=== PATIENT | female | born 1980 | race African-American/Black ===

== ENCOUNTER 2018-01-02 10:26 | Inpatient (IN) | payer OTHER ==
--- NOTE | 2017-11-16 11:52 | HP ---
HISTORY OF PRESENT ILLNESS: Ms. Loomis is a 37-year-old white female G4, P4 with 3 vaginal deliverie s and 1 with her last delivery with tubal ligation. She was referred for stress urinary in continence symptoms where she is reporting needing to wear a pad daily for urine loss associated with laughing, sneezing and coughing. She denies any urgency or frequency issues. She also reports a ne ed to use vaginal splinting at times for passage of stools and noted a bulge in her vagina associated with prolapse. She has had a recent normal Pap smear in the past year. She has no menstrual issues . PAST MEDICAL HISTORY: Otherwise, negative. PAST SURGICAL HISTORY: Noted section with tubal ligation. FAMILY HISTORY: Hypertension in her parents. SOCIAL HISTORY: Nonsmoker. No excessive alcohol use. CURRENT MEDICATIONS: She takes duloxetine 60 mg tablet daily for generalized anxiety and depression. She also takes risperidone 0.5 mg tablet daily for anxiety and nabumetone 500 mg twice a day. ALLERGIES: She has no known drug allergies. PHYSICAL EXAMINATION: VITAL SIGNS: Her height is 5 feet 9 inches, weight 211 pounds, BMI 31.2, blood pressure 122/78, puls e 75 and respirations 18. HEENT: Within normal limits. CHEST: Clear to auscultation. HEART: Regular rate and rhythm. S1, S2 heart sounds, no murmurs, rubs or gallops. ABDOMEN: Soft, nontender, nondistended with no palpable masses. Well-healed scar. PELVIC: Vulva and vagina had no lesions. Bladder urethra, there is no urethral discharge or mass. Normal meatus and bladder was nondistended. She had a hypermobile urethra with angle greater than 45 degrees with Valsalva and also loss of urine with Valsalva. She has no vaginal tenderness, no lesio ns seen. She has a grade 2-3 rectocele with Valsalva. Minimal cystocele noted. There is mainly hyp ermobility of the bladder neck appreciated. Cervix had no lesions. Uterus is small and nontender. Adnexa were nontender with no masses. ASSESSMENT: A 37-year-old white female G4, P4 with female stress urinary incontinence and also sympt omatic grade 2-3 rectocele. PLAN: Proceed with posterior repair and also Advantage Fit TVT sling with cystoscopy. Surgery sched uled for 11/21/2017. Risks and benefits of surgery are discussed in details.
--- NOTE | 2017-12-28 21:38 | HP ---
HISTORY OF PRESENT ILLNESS: Ms. Loomis is a 37-year-old -[place] female who is having G1 str ess incontinence symptoms. She also was noticing a bulge in her vagina which causes her issues with emptying of her stool. She is requiring at times for passage of stool. She also reports loss of urine with cough, sneeze, and other Valsalva maneuvers and wears a pad daily for this. She has no urgency issues. PAST MEDICAL HISTORY: Otherwise, negative. ALLERGIES: She has no known drug allergies. OB HISTORY: She has had 4 spontaneous vaginal deliveries. LABORATORY DATA: Pap smear was normal in 02/2016. CURRENT MEDICATIONS: Duloxetine 60 mg daily for anxiety and bipolar disorder, Risperdal 2 mg tablet daily. PHYSICAL EXAMINATION: VITAL SIGNS: Her weight is 211 pounds, 5 feet and 9 inches, blood pressure 122/78, BMI 31.2, respira tory rate was 18. HEENT: Within normal limits. CHEST: Clear to auscultation. HEART: Regular rate rhythm. S1, S2 heart sounds, no murmurs, rubs or gallops. ABDOMEN: Soft, nontender, nondistended. No palpable masses. PELVIC: Vulva and vagina had no lesions. She has a hypermobile urethra with angle of 45 degrees wit h Valsalva. Loss of urine with Valsalva noted. She has a grade 2-3 rectocele, minimal cystocele, bu t mainly bladder neck mobility. There were no cervical lesions. Uterus is small, nontender with no excessive prolapse. Adnexa are nontender with no masses. ASSESSMENT: This is a 37-year-old -[place] female G4, P4 with along with symptomatic g rade 2-3 rectocele. PLAN: Proceed with a posterior repair with an advantage TVT with cystoscopy procedure. This is set for 01/02/2018. Risks and benefits of the procedure have been discussed in detail.
[2018-01-01 16:36] VITALS: BMI 33.2
[2018-01-02] MEDS ORDERED: CEFAZOLIN 2 GM/50 ML BAG ONE ×2 (10:57→11:06)
[2018-01-02 11:21] LABS: #Basophils 0.1 thou/uL (0.0-0.2); #Eosinphils 0.1 thou/uL (0.0-0.7); #Lymphocytes 1.8 thou/uL (1.20-3.40); #Monocytes 0.5 thou/uL (0.11-0.59); #Neutrophils 3.8 thou/uL (1.40-6.50); %Basophils 1.4 % (0.0-1.0); %Eosinophils 1.9 % (0.0-10.0); %Lymphocytes 28.8 % (21.0-51.0); %Monocytes 8.5 % (0.0-10.0); %Neutrophils 59.4 % (42.0-75.0); Hemoglobin 11.3 g/dL (12.0-16.0); Mean Corpuscular HGB CONC 30.3 g/dL (32.0-36.0); Mean Corpuscular Hemoglobin 23.3 pg (27.0-31.0); Mean Platelet Volume 7.7 fL (7.4-10.4); Platelet Count 433 thou/uL (130-400); RBC Distribution Width 14.6 % (11.5-14.5); Red Blood Cell (RBC) Count 4.84 mill/uL (4.20-5.40); White Blood Cell (WBC) Count 6.3 thou/uL (4.8-10.8)
[2018-01-02] MEDS ORDERED: Fentanyl 100 MCG/2 ML VIAL ONE ×2 (12:29→15:59)
[2018-01-02] MEDS ORDERED: Lidocaine 1% w/Epinephrine 1:100K 30 ML VIAL ONE (13:53)
[2018-01-02] MEDS ORDERED: Sodium Chloride 0.9% 30 ML ONE (14:23)
[2018-01-02] MEDS ORDERED: PHENYLEPHRINE-NS 100 MCG/ML 10 ML SYRINGE ONE (15:03)
[2018-01-02] MEDS ORDERED: Lidocaine 1% PF 5 ML VIAL ONE (15:03)
[2018-01-02] MEDS ORDERED: Ketorolac Tromethamine 30 MG/ML VIAL ONE (15:03)
[2018-01-02] MEDS ORDERED: PROPOFOL 200 MG/20 ML VIAL ONE (15:03)
[2018-01-02] MEDS ORDERED: Zolpidem Tartrate 5 MG TAB PO PRN (15:41)
[2018-01-02] MEDS ORDERED: traMADol HCl 50 MG TAB PO PRN (15:41)
[2018-01-02] MEDS ORDERED: Simethicone Chewable 80 MG TAB PO PRN (15:41)
[2018-01-02] MEDS ORDERED: diphenhydrAMINE 25 MG CAP PO PRN (15:41)
[2018-01-02] MEDS ORDERED: Bisacodyl 10 MG SUPP PR PRN (15:41)
[2018-01-02] MEDS ORDERED: Morphine 2 MG/ML SYRINGE SLOW IVP PRN (15:41)
[2018-01-02] MEDS ORDERED: Promethazine HCl 25 MG/ML VIAL IM PRN ×2 (15:41→15:52)
[2018-01-02] MEDS ORDERED: Ondansetron PF 4 MG/2 ML Vial IVP PRN (15:41)
[2018-01-02] MEDS ORDERED: Meperidine HCl/PF 25 MG/ML VIAL ONE (15:48)
[2018-01-02] MEDS ORDERED: Meperidine HCl/PF 25 MG/ML VIAL SLOW IVP PRN (15:52)
[2018-01-02] MEDS ORDERED: Promethazine HCl 25 MG/ML VIAL SLOW IVP PRN (15:52)
[2018-01-02] MEDS ORDERED: Ondansetron HCl/PF 4 MG/2 ML Vial IVP PRN (15:52)
[2018-01-02] MEDS ORDERED: Ketorolac Tromethamine 30 MG/ML VIAL IVP SCH (18:00)
[2018-01-02] MEDS: traMADol HCl 50 MG TAB PO PRN (18:32)
[2018-01-02] MEDS: Ketorolac Tromethamine 30 MG/ML VIAL IVP SCH (22:00)
[2018-01-02] MEDS: Docusate Calcium (SURFAK) 240 MG CAP PO SCH (22:01)
[2018-01-02] MEDS: Lactated Ringer's 1,000 ML IV SCH (22:03)
[2018-01-03] MEDS: Ketorolac Tromethamine 30 MG/ML VIAL IVP SCH ×2 (03:34→09:13)
--- NOTE | 2018-01-03 03:35 | OP ---
DATE OF PROCEDURE: 01/02/2018 PREOPERATIVE DIAGNOSES: 1. A 37-year-old female with symptomatic grade 3 rectocele. 2. Genuine stress incontinence. POSTOPERATIVE DIAGNOSES: 1. A 37-year-old female with symptomatic grade 3 rectocele. 2. Genuine stress incontinence. PROCEDURES PERFORMED: 1. Advantage-Fit TVT with cystoscopy. 2. Posterior repair. SURGEON: Candie Barnett M.D. [employer]SEM[employer]ER [employer] SURGEON: Myla Abad M.D. ANESTHESIA: General endotracheal. ESTIMATED BLOOD LOSS: 100 mL. COMPLICATIONS: None. COUNTS: Correct x2. ANTIBIOTICS: Two grams Ancef on-call to the OR. FINDINGS: 1. Cystoscopy of the bladder, post-TVT placement showed no evidence of mesh placement. Bladder muco sa was normal and bilateral ureteral efflux was visualized. Urethra also appeared normal. 2. Clear urine present in Garland catheter post-procedure. 3. No evidence of rectal mucosal sutures placed post repair check. DISPOSITION: To the recovery room stable. DESCRIPTION OF OPERATIVE PROCEDURE: The patient previously received informed consent in regard to early [facility]. She was taken back to the operating room where she received a general endotracheal anesthetic agent without complications. She was placed in the dorsal lithotomy position with Rohan stirrups. She was prepped and draped in usual sterile fashion. Garland catheter was placed and the position of t he urethral meatus was identified. Just above the symphysis pubis area 2 cm lateral to the urethral meatus was marked in the lower suprapubic area with a marking pen bilaterally. Then, the retropubic space was infiltrated with injectable saline. Approximately 40 mL water dissection in the retropubic space. Next, the Garland bulb was palpated and mid urethra was identified. Allis clamp was placed early periorly and inferiorly to this. The vaginal mucosa in this area was infiltrated with 1% lidocaine w ith epinephrine. A 1.5 cm vertical midline incision was made in the vaginal mucosa in the midpoint o f the mid urethra. The edges of this was grasped with two Allis clamps and then Metzenbaum scissors was utilized to dissect submucosally towards the junction of the internal pubic ramus and the symphys is pubis bilaterally. The space of Retzius was punctured. Once this was obtained, the Garland cathete r was placed and Garland guidewire was then placed deviating the bladder away from the patient's right side while the Advantage-Fit trocar was assembled and the TVT tape was placed through the previously dissected tunnel behind the symphysis pubis up to the marked space. The end of the trocar was then p ulled back tagged with a Payton clamp. This was again repeated on the patient's left side after placed in proper position aiming toward axilla in the previous marked spot, again tagging the end of the mesh tape. The Advantage-Fit trocar had been removed. We had also diverted the bladder t o the patient's opposite side during the same placement of the trocar. The Garland catheter was then r emoved. The cystoscopy was performed with 70-degree scope. Bladder was distended with the previousl y mentioned findings. Once we ascertained that there was no injury to the bladder, a Reaves scissor wa s then placed in the mid urethra spot and two ends of the mesh were then pulled through and were pull ed snugly against the Reaves scissor, then the mesh was trimmed at the base of skin edges bilaterally. The Reaves scissors had been removed. The submucosal vaginal mucosa of the mid urethra site was then closed with interrupted [id number] sutures of Vicryl securing hemostasis. Garland catheter was re placed and clear urine was draining from the catheter. Attention was then turned to the posterior repair. Two Allis clamps were placed at the 4 and 8 o'kai ck position. The posterior vaginal mucosa was infiltrated with 1% lidocaine with epinephrine. A mid line vertical incision up to the cervix was incised and the edges of the vaginal mucosa were grasped with Allis clamps. Then, the endopelvic fascia was dissected sharply and bluntly dissecting rectocel e in its entirety. An extra glove was placed over the right hand and the rectum was inspected and th e edges of the endopelvic fascial defects were grasped with Allis clamps. The dirty glove was then r emoved and then we plicated the endopelvic fascia with [id number] sutures of 0 Vicryl closing th e endopelvic fascial defect and reducing the rectocele starting proximally and working distally towar ds the introitus. Once this had been completed, an additional rectal exam was carried out and again no evidence of any sutures in the rectum were noted and reduction of the rectocele was confirmed. Th e vaginal mucosa and posterior vagina was then closed with interrupted [id number] sutures starti ng in the most proximal working towards the introitus securing hemostasis. A moistened Kerlix was th en placed in the vaginal vault for hemostasis and pressure. The patient was awakened from anesthesia and transferred to the recovery room in stable condition.
[2018-01-03] MEDS: Lactated Ringer's 1,000 ML IV SCH (05:25)
[2018-01-03 06:31] LABS: Hemoglobin 10.7 g/dL (12.0-16.0); Mean Corpuscular HGB CONC 30.2 g/dL (32.0-36.0); Mean Corpuscular Hemoglobin 23.6 pg (27.0-31.0); Mean Platelet Volume 7.9 fL (7.4-10.4); Platelet Count 445 thou/uL (130-400); RBC Distribution Width 14.6 % (11.5-14.5); Red Blood Cell (RBC) Count 4.55 mill/uL (4.20-5.40); White Blood Cell (WBC) Count 22.9 thou/uL (4.8-10.8)
[2018-01-03] MEDS: traMADol HCl 50 MG TAB PO PRN (07:55)
[2018-01-03] MEDS: Docusate Calcium (SURFAK) 240 MG CAP PO SCH (07:55)
[2018-01-03 12:08] VITALS: BP 117/72; TEMP 97.9
--- NOTE | 2018-01-03 15:52 | DIS ---
DATE OF ADMISSION: 01/02/2018 DATE OF DISCHARGE: 01/03/2018 DIAGNOSES: 1. Female genuine stress incontinence. 2. Symptomatic grade 3 rectocele. PROCEDURES PERFORMED: 1. Advantage Fit TVT with cystoscopy. 2. Posterior repair. SUMMARY OF HOSPITAL COURSE: Ms. Loomis is a 37-year-old -[place] female who had symptomatic genuine stress incontinence and grade 3 rectocele who underwent surgical correction of this on 2017. Postoperatively, the patient has done well. Her vital signs remained stable. Her postoperati ve hematocrit was 35%. She began voiding trials the morning of postop day #1 with initial voids in t he 400 with postvoid residuals noted on bladder scan of 0. She was ambulating and tolerating a regul ar diet at the time of discharge. She was discharged home on the afternoon of postop day #1 with dis charge meds tramadol 50 mg q.6 hours p.r.n. pain, [id number] ibuprofen as directed and Zofran 4 mg p.o. q.6 hours p.r.n. nausea. She has a scheduled followup 2 and 6 weeks postop.
[2018-01-07] MEDS ORDERED: Ibuprofen 800 MG TAB PO SCH (21:00)
== END 2018-01-03 14:17 | disposition home or self-care (01) | DRG 748 ==
LOC: SDC 10:26 → 3SE 16:37 → OBSVTOIN 16:37
PROVIDERS: ADMIT Obstetrics & Gynecology; ATTEND Obstetrics & Gynecology
PROC: 0TSD0ZZ Reposition Urethra, Open Approach (ICD-10-PCS; principal; 2018-01-02)
PROC: 0JQC0ZZ Repair Pelvic Region Subcutaneous Tissue and Fascia, Open Approach (ICD-10-PCS; 2018-01-02)
PROC: 0TJB8ZZ Inspection of Bladder, Via Natural or Artificial Opening Endoscopic (ICD-10-PCS; 2018-01-02)
DX: N81.6 Rectocele (principal); N39.3 Stress incontinence (female) (male); N36.41 Hypermobility of urethra; F41.1 Generalized anxiety disorder; F31.9 Bipolar disorder, unspecified; Z79.899 Other long term (current) drug therapy
CPT/HCPCS: 36415; 85025; 85027; 86850; 86900; 86901; C1781; J1885; J2001; J2175; J2405; J2704; J3010

== ENCOUNTER 2018-01-03 22:08 | Emergency (ER) | payer OTHER ==
[2018-01-04 00:48] LABS: #Eosinphils 0.1 thou/uL (0.0-0.7); #Lymphocytes 2.4 thou/uL (1.20-3.40); %Basophils 0.1 % (0.0-1.0); %Eosinophils 0.5 % (0.0-10.0); %Lymphocytes 18.8 % (21.0-51.0); %Monocytes 8.2 % (0.0-10.0); %Neutrophils 72.4 % (42.0-75.0); Mean Corpuscular HGB CONC 31.4 g/dL (32.0-36.0); Mean Corpuscular Volume 76.3 fL (78.0-98.0); Mean Platelet Volume 7.8 fL (7.4-10.4); Platelet Count 392 thou/uL (130-400); RBC Distribution Width 14.9 % (11.5-14.5); Red Blood Cell (RBC) Count 4.15 mill/uL (4.20-5.40); White Blood Cell (WBC) Count 12.5 thou/uL (4.8-10.8)
[2018-01-04 00:51] LABS: Anion Gap 11 mmol/L (10-20); BUN (Urea Nitrogen) 10 mg/dL (7.0-18.7); Calc. Creatinine Clearance 0 mL/min (70-130); Carbon Dioxide 24 mmol/L (22-29); Chloride 107 mmol/L (98-107); Estimated GFR-MDRD Greater than 90; Glucose 92 mg/dL (70-105); Potassium 3.7 mmol/L (3.5-5.1); Sodium 138 mmol/L (136-145)
[2018-01-04] MEDS ORDERED: Morphine 4 MG/ML VIAL ONE (01:45)
[2018-01-04] MEDS ORDERED: Ondansetron PF 4 MG/2 ML Vial ONE (01:46)
== END 2018-01-04 03:59 | disposition home or self-care (01) ==
LOC: ERS 22:08
DX: G89.18 Other acute postprocedural pain (principal); R42 Dizziness and giddiness; N93.9 Abnormal uterine and vaginal bleeding, unspecified; R11.0 Nausea
CPT/HCPCS: 36415; 80048; 85025; 93005; 96361; 96374; 96375; J2270; J2405

== ENCOUNTER 2018-03-12 20:35 | Emergency (ER) | payer OTHER ==
--- NOTE | 2018-03-12 21:43 | RAD ---
RIGHT KNEE FOUR VIEW SERIES: INDICATIONS: Fall with injury and pain. FINDINGS: Evidence of prior surgery of the right knee with residual lucent tract identified at the distal femur and proximal tibia. There is moderate osteophytosis. Mild joint capsular distention. No acute fra cture or dislocation. IMPRESSION: 1. No acute osseous abnormality of the postoperative right knee. 2. Mild joint capsular distention. POS: [facility]
== END 2018-03-12 22:01 | disposition home or self-care (01) ==
LOC: ERS 20:35
DX: M25.561 Pain in right knee (principal)

== ENCOUNTER 2018-03-27 22:14 | Emergency (ER) | payer OTHER ==
[2018-03-27] MEDS ORDERED: Amoxicillin/Potassium Clav 875 MG TAB ONE (22:55)
[2018-03-27] MEDS ORDERED: traMADol HCl 50 MG TAB ONE (23:15)
== END 2018-03-27 23:20 | disposition home or self-care (01) ==
LOC: ERS 22:14
DX: K03.81 Cracked tooth (principal); K02.9 Dental caries, unspecified
CPT/HCPCS: 99283

== ENCOUNTER 2018-07-24 13:23 | Outpatient (CLI) | payer OTHER ==
--- NOTE | 2018-07-24 13:47 | RAD ---
Right hand 3 views: 07/24/2018 COMPARISON: None HISTORY: Injury last month, persistent pain FINDINGS: There is an obliquely oriented fracture at the base of the fifth metacarpal. Fracture line is still seen. There is prominent osseous overgrowth/callus formation, consistent with a degree of incomplete healing. There is a degree of impaction at this fracture site and there is approximately 4 mm of anterior displacement. This is consistent with the patient's report of trauma last month. There is no evidence for dislocation. No definite additional fracture is seen. IMPRESSION: Obliquely oriented subacute fracture involving the base of the fifth metacarpal. There is prominent callus formation suggesting a degree of incomplete healing. Recommend orthopedic surgery consultation.
== END 2018-07-24 13:24 | disposition home or self-care (01) ==
LOC: BICRAD 13:23
PROVIDERS: ATTEND Nurse Practitioner Family
DX: M79.641 Pain in right hand (principal); S62.316A Displaced fracture of base of fifth metacarpal bone, right hand, initial encounter for closed fracture

== ENCOUNTER 2022-04-05 22:22 | Emergency (ER) | payer OTHER | END 2022-04-05 23:44 | disposition left against medical advice (07) | LOC: ERS 22:22 | DX: Z53.21 Procedure and treatment not carried out due to patient leaving prior to being seen by health care provider (principal) ==

== ENCOUNTER 2022-08-02 12:37 | Emergency (ER) | payer OTHER | END 2022-08-02 13:13 | disposition home or self-care (01) | LOC: ERS 12:37 | DX: M17.0 Bilateral primary osteoarthritis of knee (principal) ==